=== PATIENT | male | born 1990 | race Two or more races ===

== ENCOUNTER 2017-09-26 01:22 | Emergency (ER) | payer SELFPAY ==
[~2017-09-26] VITALS: Ht 152.4 cm; Wt 77.1 kg
[2017-09-26 01:30] VITALS: BP 121/69
[2017-09-26] MEDS ORDERED: LORazepam Inj 2mg/ml 1ml IV ONE (02:00)
[2017-09-26] MEDS ORDERED: Haloperidol 5mg/ml Inj IM ONE (02:00)
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
[2017-09-26 02:27] LABS: ANION GAP 11 mmol/L (5-15); BLOOD UREA NITROGEN 16 mg/dL (7-18); CALCIUM 8.9 MG/DL (8.5-10.1); CARBON DIOXIDE 24 MMOL/L (21-32); CHLORIDE 109 MMOL/L (98-107); CREATININE 1.3 MG/DL (0.55-1.30); POTASSIUM 3.6 MMOL/L (3.5-5.1); SODIUM 144 MMOL/L (136-145)
[2017-09-26 02:36] LABS: BASOPHILS % (AUTO) 2.6 % (0.0-2.0); EOSINOPHILS % (AUTO) 0.5 % (0.0-3.0); HEMATOCRIT 46.8 % (42.0-52.0); LYMPHOCYTES % (AUTO) 38.2 % (20.0-45.0); MEAN CORPUSCULAR VOLUME 85 FL (80-99); MONOCYTES % (AUTO) 7.7 % (1.0-10.0); PLATELET COUNT 249 K/UL (150-450); RED BLOOD COUNT 5.52 M/UL (4.70-6.10); RED CELL DISTRIBUTION WIDTH 11.5 % (11.6-14.8); WHITE BLOOD COUNT 4.8 K/UL (4.8-10.8)
[2017-09-26 02:41] LABS: CKMB 2.5 NG/ML (0.0-3.6); CREATINE KINASE 184 U/L (26-308)
[2017-09-26 03:00] VITALS: BP 122/69
[2017-09-26 04:00] VITALS: BP 115/66
[2017-09-26 06:00] VITALS: BP_SYST 108; BP_SYST 115; BP_DIAS 59; BP_DIAS 66
== END 2017-09-26 05:55 | disposition home or self-care (01) ==
LOC: EDBD 01:22 → EMR 02:00
DX: F29 Unspecified psychosis not due to a substance or known physiological condition (principal); F10.129 Alcohol abuse with intoxication, unspecified; F15.10 Other stimulant abuse, uncomplicated
CPT/HCPCS: 36415; 80048; 80307; 82550; 82553; 85025; 96365; 96372; 99284; G0480; J1630; 80329

== ENCOUNTER 2019-07-28 12:14 | Emergency (ER) | payer OTHER ==
[2019-07-28] VITALS (7 sets, daily range): BP systolic 109–188; BP diastolic 73–119
[~2019-07-28] VITALS: Ht 165.1 cm; Wt 74.8 kg
--- NOTE | 2019-07-28 12:36 | Emergency Room Report ---
History of Present Illness General Chief Complaint: Medical Clearance Source: Medical Record, EMS (Pasha De León) Present Illness HPI 28-year-old male with no known significant medical history brought in by [employer] for medical clearance. Patient reports that he fell on his left wrist a week ago and complains of pain. Appears to be under the influence of unknown stimulant. Rates the pain 10 out of 10 without radiation. Refuses to get anything for pain. Denies any tingling numbness. Has full range of motion of the affected area. Denies all other injuries. Is not a good historian. Denies URI symptoms chills, chest pain shortness of breath. (Pasha De León) Allergies: Coded Allergies: No Known Allergies (Unverified , 09/26/17) COVID-19 Screening Contact w/high risk pt: No Recent Travel to affected area: No Experienced COVID-19 symptoms?: No (Pasha De León) Patient History Past Medical History: see triage record Past Surgical History: none Pertinent Family History: none Immunizations: UTD Reviewed Nursing Documentation: PMH: Agreed; PSxH: Agreed (Pasha De León) Nursing Documentation-PMH Past Medical History: No Stated History (Pasha De León) Review of Systems All Other Systems: negative except mentioned in HPI (Pasha De León) Physical Exam Vital Signs Date Time Temp Pulse Resp B/P (MAP) Pulse Ox O2 Delivery O2 Flow Rate FiO2 07/28/19 12:17 98.2 100 18 106/70 (82) 98 Room Air Sp02 EP Interpretation: reviewed, normal General Appearance: no apparent distress, alert, GCS 15, non-toxic Head: normocephalic, atraumatic Eyes: bilateral eye normal inspection, bilateral eye PERRL ENT: hearing grossly normal, normal pharynx, no angioedema, normal voice Neck: full range of motion, supple/symm/no masses Respiratory: chest non-tender, lungs clear, normal breath sounds, no rhonchi, speaking full sentences Cardiovascular #1: regular rate, rhythm, no edema, no murmur Gastrointestinal: non tender, soft Rectal: deferred Genitourinary: no CVA tenderness Musculoskeletal: back normal, digits/nails normal, non-tender Neurologic: alert, oriented Psychiatric: judgement/insight normal, memory normal, mood/affect normal, no suicidal/homicidal ideation Lymphatic: no adenopathy (Pasha De León) Procedures Splinting Splinting : Consent: Verbal Location: left wrist Splint: ulnar Pre-Proc Neuro Vasc Exam: normal Post-Proc Neuro Vasc Exam: normal Patient Tolerated: Well Complications: None (Pasha De León) Splinting : Consent: Written Hand-Made Type: plaster Splint: sugar-tong Pre-Proc Neuro Vasc Exam: normal Post-Proc Neuro Vasc Exam: normal Patient Tolerated: Well Complications: None (Eddie Lomas MD) Joint Reduction Joint Reduction : Consent: Written Joint Reduction Site: wrist (L) Procedural Sedation: Yes Reduction Attempts: One Pre-Procedure NV Exam: Yes Post-Procedure NV Exam: Yes Post Joint Reduction Film: joint reduced Patient Tolerated: Well Complications: None (Eddie Lomas MD) Procedural Sedation Consent: Written Airway Assessment (Malampati): I Heart: normal Lungs: normal Procedures/Plans: Closed Reduction Plan for Moderate Sedation: Other - Ketamine ASA Score: I Start Time: 13:55 End Time: 14:10 Communication: No Apparent Limitation Mental Status: Awake Respiration: Unlabored Nausea: NO Vomiting: NO (Eddie Lomas MD) Medical Decision Making PA Attestation All diagnoses and treatment plans were reviewed and discussed with my supervising physician Dr. Lomas (Pasha De León) PA Attestation I participated in the care of this patient along with MALATHI Mccullough Briefly, 28-year-old male presenting for medical clearance prior to incarceration complaining of left wrist pain. He had fallen on wet concrete 1 week ago. Palpable deformity. X-ray shows a comminuted and displaced ulnar fracture. Patient underwent procedural sedation without complication for closed reduction. Patient is now returned to his preprocedural baseline. Better alignment on postreduction x-ray noted. Patient was placed in a sugar tong splint. He will follow-up with orthopedic surgery. Return precautions discussed as well as splint care. He understands and agrees and will be discharged to police custody. (Eddie Lomas MD) Diagnostic Impression: Primary Impression: Wrist fracture Additional Impression: Displaced fracture of left ulna ER Course 28-year-old male with no known significant medical history brought in by [employer] for medical clearance. Patient reports that he fell on his left wrist a week ago and complains of pain. Appears to be under the influence of unknown stimulant. Rates the pain 10 out of 10 without radiation. Refuses to get anything for pain. Denies any tingling numbness. Has full range of motion of the affected area. Denies all other injuries. Is not a good historian. Denies URI symptoms chills, chest pain shortness of breath. Ddx considered but are not limited to : Wrist sprain, wrist strain, wrist fracture Vital signs: are WNL, pt. is afebrile H&PE are most consistent with:wrist fracture ORDERS: Wrist x-ray, tylenol #3 ED INTERVENTIONS: splint and reduction DISCHARGE: At this time pt. is stable for d/c to home. Will provide printed patient care instructions, and any necessary prescriptions. Care plan and follow up instructions have been discussed with the patient prior to discharge.Medically cleared. Patient to follow-up with [facility] (Pasha De León) Other X-Ray Diagnostic Results Other X-Ray Diagnostic Results #1: X-Ray ordered: wrist x ray # of Views/Limited Vs Complete: 3 View Indication: Pain EP Interpretation: Yes PA Xray: Interpretation reviewed, by supervising MD, and agrees with findings. Interpretation: other - distal ulnar fracture Impression: No acute disease Electronically Signed by: Pasha See PA-C Other X-Ray Diagnostic Results #2: X-Ray ordered: post reduction wrist xray # of Views/Limited Vs Complete: 3 View Indication: Pain EP Interpretation: Yes PA Xray: Interpretation reviewed, by supervising MD, and agrees with findings. Interpretation: other - fx displaced left ulna Impression: Other - displaced fx left ulna Electronically Signed by: Pasha See PA-C (Pasha De León) Last Vital Signs Date Time Temp Pulse Resp B/P (MAP) Pulse Ox O2 Delivery O2 Flow Rate FiO2 07/28/19 12:23 98.2 97 18 109/74 98 Room Air (Pasha De León) Disposition: LAW ENFORCEMENT IN [facility]UST Condition: Stable Scripts Ibuprofen (Ibu) 800 Mg Tablet 800 MG PO TID, #30 TAB Prov: Pasha De León 07/28/19 Acetaminophen With Codeine (T#3) (TYLENOL #3 TAB*) Y Tab 1 TAB ORAL Q6HR PRN for For Pain, #10 TAB Prov: Pasha De León 07/28/19 Patient Instructions: Wrist Fracture With [facility] Pasha De León Jul 28, 2019 12:36 Eddie Lomas MD Jul 28, 2019 13:50
[2019-07-28] MEDS ORDERED: Morphine Sulfate 2mg/ml Inj(IV/IM USE ONLY) IVP ONE (12:45)
[2019-07-28] MEDS ORDERED: Ketamine HCl 50mg/ml 1ml Syr IV ONE (13:15)
--- NOTE | 2019-07-28 13:33 | Diagnostic Imaging Report ---
Clinical Indication:Pain, status post trauma Technique: 3 views of the left wrist Comparison: None Findings: There is a comminuted fracture of the distal ulnar diaphysis. This demonstrates approximately one bone width medial displacement and overrides by several millimeters. There is new bone surrounding the fracture likely indicating callus formation, but the fracture is completely ununited. No associated radial fracture. No evidence of carpal fracture. Impression: Ununited comminuted distal ulnar fracture, as described. Presence of surrounding callus indicates that this is not acute.
[2019-07-28] MEDS ORDERED: IBU800 MG PO (14:10)
[2019-07-28] MEDS ORDERED: ACETAMINOPHEN-1 EAC1 ORAL (14:10)
--- NOTE | 2019-07-28 15:30 | Diagnostic Imaging Report ---
Indication: Pain, postreduction Technique: 2 views of the left wrist Comparison: 2 hours earlier Findings: Interim closed reduction and splinting of previously demonstrated distal ulnar fracture, with partial improvement of anatomic alignment. Impression: Postreduction and splinting of distal ulnar fracture, as described
== END 2019-07-28 15:27 ==
LOC: EDBD 12:14 → EDUNIT# 12:14 → EMR 12:34
DX: S52.692A Other fracture of lower end of left ulna, initial encounter for closed fracture (principal); W19.XXXA Unspecified fall, initial encounter; Y92.9 Unspecified place or not applicable
CPT/HCPCS: 25650; 73100; 73110; 96374; 96375; 99283; J2270; J2405